=== PATIENT | male | born 1950 | race Caucasian/White ===

== ENCOUNTER 2019-04-06 13:11 | Inpatient (IN) | payer MEDICARE ==
--- OUTSIDE RECORDS SUMMARY | 2019-04-06 13:20 | XMS REPORT | Continuity of Care Document ---
:1950 External Reference #:[id number] Author Name Murray Clemente M.D. 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 Onset: 12/21/2016 outflow obstruction Imaging of abdomen abnormal Murray Clemente M.D. Onset: 01/16/2018 Diverticular disease of colon Murray Cleemnte M.D. Onset: 2017 Benign neoplasm of colon Murray Clemente M.D. Onset: 01/16/2018 Psychogenic impotence Bradly Scales M.D. Onset: 11/09/2017 Benign prostatic hypertrophy Bradly Scales M.D. Onset: 08/03/2017 without outflow obstruction Retention of urine Bradly Scales M.D. Onset: 08/03/2017 Tear film insufficiency Adam Velasco MD Onset: 05/25/2017 Combined form of senile cataract Adam Velasco MD Onset: 05/25/2017 Epiretinal membrane Adam Velasco MD Onset: 05/25/2017 Raised prostate specific antigen Bradly Scales M.D. Onset: 03/13/2017 Social History Type Date Description Comments Sex Unknown Tobacco Use Start: Unknown End: Quit 15 years ago Unknown Smokeless Tobacco Current Smokeless Tobacco User, Uses Once Daily ETOH Use Consumes 1 beer per day Tobacco Use Start: Unknown End: Patient is a former smoker Recreational Drug Use Denies Drug Use Smoking Status Reviewed: 06/04/18 Patient is a former smoker Allergies, Adverse Reactions, Alerts Description No Known Drug Allergies Medications Active Medications SIG Qnty Indications Ordering Provider Date Miralax 1 to 2 packets by 24units K59.00 Bryn, 03/27/2019 3350NF mouth as needed Karuna Alex constipation Ivone Aspirin 1 po qd Unknown 81mg Chewtabs Trazodone HCL 2 po qd prn Unknown 50mg Tablets Lisinopril 1 by mouth every Unknown 5mg day Tablets Stool Softner 5 mg 1 tab every 2 Unknown days Immunizations Description No Information Available Vital Signs Date Vital Result Comment 03/27/2019 2:42pm BP Systolic 153 mmHg BP Diastolic 96 mmHg Heart Rate 76 /min Respiratory Rate 20 /min Height 67 inches 5'7" Weight 185.00 lb BMI (Body Mass Index) 29.0 kg/m2 BSA (Body Surface Area) 1.96 m2 Bandon body weight in kilograms 67 kg O2 % BldC Oximetry 99 % 05/17/2018 8:19am BP Systolic 158 mmHg BP Diastolic 90 mmHg Body Temperature 97.4 F Heart Rate 71 /min Respiratory Rate 16 /min Height 67 inches 5'7" Pain Level 0 Bandon body weight in kilograms 67 kg O2 % BldC Oximetry 99 % Results Description No Information Available Procedures Date Code Description Status 04/09/2001 96769088 Colonoscopy Completed Medical Devices Description No Information Available Encounters Description No Information Available Assessments Date Code Description Provider 03/27/2019 K59.00 Constipation, unspecified Murray Clemente M.D. Plan of Treatment Future Appointment(s):06/09/2019 8:30 am - Adam Velasco MD at [id number]/ 06/2020 8:30 am - Bradly Scales M.D. at [facility] Functional Status Functional Condition Comment Date Status Active Independent with all ADL's Active Independent with all IADL's Active Mental Status Description No Information Available Referrals Description No Information Available
--- NOTE | 2019-04-06 13:21 | ED ---
HPI Chest Pain - HPI Summary HPI Summary: 69-year-old male with a significant past medical history of HTN presents to the emergency department today complaining of chest pain. he states he has had intermittent chest pain for the last 3 days which he describes as 3 out of 10 pressure was left anterior chest. Pain lasts approx 10 minutes. Patient states this pain comes on "randomly and "it is not associated with exertion. he reports associated lightheadedness, shortness of breath, arm/ leg numbness and tingling with chest pain. Patient took 81 mg of aspirin this morning and received another 324 mg of aspirin in route to the hospital via EMS. Patient denies fever, abdominal pain, shortness of breath, rash. Upon presentation to the emergency department patient is asymptomatic and has no pain. Family and social history are noncontributory. Patient's c d area supervisor is Dr. Gottlieb. Patient states his last stress test was January 2018 and his most recent echocardiography was done February 2019. - History of Current Complaint Time Seen by Provider: 04/06/19 13:13 Hx Obtained From: Patient Onset/Duration: Started Hours Ago, Started Days Ago, Atraumatic Timing: Intermittent, Lasting Minutes Initial Severity: Mild Current Severity: Mild Pain Scale Used: 0-10 Numeric Chest Pain Location: Left Anterior Chest Pain Radiates: Yes Chest Pain Radiates To:: Arm Character: Pressure/Squeezing Aggravating Factor(s): Nothing Alleviating Factor(s): Nothing, Rest Associated Signs and Symptoms: Positive: Chest Pain, Vision Changes, Recent Stress, Tingling, Shortness of Breath, Lightheadedness - Allergy/Home Medications Allergies/Adverse Reactions: Allergies Allergy/AdvReac Type Severity Reaction Status Date / Time MS Atorvastatin Allergy Unknown Unknown Verified 12/22/16 15:46 [From Lipitor] Reaction Details MS Rosuvastatin Allergy Unknown Unknown Verified 12/22/16 15:46 [From Crestor] Reaction Details Home Medications: Home Medications Aspirin Childrens 81 MG 81 mg PO DAILY 04/06/19 [History Confirmed 04/06/19] Lisinopril 2.5 MG- 5 mg PO DAILY 04/06/19 [History Confirmed 04/06/19] PMH/Surg Hx/FS Hx/Imm Hx Endocrine/Hematology History: Denies: Hx Diabetes, Hx Systemic Lupus Erythematosus Cardiovascular History: Reports: Hx Aneurysm, Hx Hypertension Denies: Hx Congestive Heart Failure, Hx Pacemaker/ICD Respiratory History: Reports: Other Respiratory Problems/Disorders - CHRONIC BRONCHITIS GI History: Reports: Other GI Disorders - GERD History: Denies: Hx Dialysis, Hx Renal Disease Musculoskeletal History: Denies: Hx Rheumatoid Arthritis Sensory History: Denies: Hx Hearing Aid Psychiatric History: Denies: Hx Panic Disorder - Cancer History Hx Chemotherapy: No - Surgical History Surgery Procedure, Year, and Place: 1969 HERNIA REPAIR, AORTA FEMORAL BYPASS AND AAA REPAIR 2001, THORACIC TUMOR REMOVED, LUMBAR LAMINECTOMY 2009, LEFT CAROTID ENDARTECTOMY 04/2011 Infectious Disease History: Denies: Traveled Outside the [place] in Last 30 Days Review of Systems Constitutional: Negative Eyes: Negative ENT: Negative Positive: Chest Pain Positive: Shortness Of Breath Gastrointestinal: Negative Genitourinary: Negative Musculoskeletal: Negative Skin: Negative Neurological: Negative Psychological: Normal All Other Systems Reviewed And Are Negative: Yes Physical Exam Triage Information Reviewed: Yes Vital Signs Reviewed: Yes Appearance: Positive: Well-Appearing, No Pain Distress, Well-Nourished Skin: Positive: Warm, Skin Color Reflects Adequate Perfusion Eyes: Positive: EOMI, [place] ENT: Positive: Hearing grossly normal Respiratory/Lung Sounds: Positive: Clear to Auscultation, Breath Sounds Present Cardiovascular: Positive: RRR, S1, S2 Abdomen Description: Positive: Nontender, Soft. Negative: Distended, Guarding Bowel Sounds: Positive: Present Musculoskeletal: Positive: Strength/ROM Intact Neurological: Positive: Sensory/Motor Intact, Alert, Oriented to Person Place, Time, Normal Gait, Speech Normal Psychiatric: Positive: Normal AVPU Assessment: Alert Procedures - Sedation Patient Received Moderate/Deep Sedation with Procedure: No Diagnostics - Laboratory Result Diagrams: 04/06/19 13:29 04/06/19 13:24 Lab Statement: Any lab studies that have been ordered have been reviewed, and results considered in the medical decision making process. Chest Pain Course/Dx - Course Course Of Treatment: The patient was evaluated for chest pain in the emergency department. They were promptly seen and examined. Laboratory studies, diagnostic films and an EKG were performed to investigate the patients risk for acute cardiopulmonary pathology. Pericarditis, ACS, pneumothorax, pulmonary embolism and aortic dissection were all considered in the workup of this patient. EKG was done which showed no evidence of myocardial infarction. Normal sinus rhythm at a rate of 66 bpm with normal intervals. Right bundle branch block is noted. Labs returned with no significant abnormalities. Initial troponin was 0.01. serial troponins ordered for watching delta troponin. HEART Score 5. Hospitalist Dr. Malik was consulted at 1502 for admission of the patient for further evaluation and management for his chest pain due to his high heart score. - Chest Pain Differential Diagnosis/HQI/PQRI: Acute IA, ACS, Angina - Diagnoses Provider Diagnoses: Chest pain - Provider Notifications Discussed Care Of Patient With: Jyoti Malik - agreed to admit the patient to [facility] for further evaluation and management Time Discussed With Above Provider: 15:02 Instructed by Provider To: Admit As Inpatient Discharge ED - Sign-Out/Discharge Documenting (check all that apply): Patient Departure - Discharge Plan Condition: Stable Disposition: ADMITTED TO [facility] Patient Education Materials: Chest Pain (ED) Referrals: Wiliam Russ MD [Primary Care Provider] - 5 Days - Billing Disposition and Condition Condition: STABLE Disposition: Admitted to [facility] - Attestation Statements Provider Attestation: I was available for consultation for this patient. I did not evaluate the patient or participate in any medical decision making or disposition decisions unless I am specifically named in the chart as having consulted on the patient. If I have consulted on the patient, please see my own ED note on the patient encounter. Manan Ma MD
[2019-04-06 13:39] LABS: ABS Basophils 0.1 10^3/ul (0-0.2); ABS Lymphocytes 1.2 10^3/ul (1.0-4.8); ABS Monocytes 0.3 10^3/ul (0-0.8); ABS Neutrophils 5.8 10^3/ul (1.5-7.7); Eosinophil % 0.5 %; Hematocrit 43 % (42-52); Hemoglobin 14.8 g/dL (14.0-18.0); Lymphocyte % 16.4 %; Mean Corpuscular HGB Conc 34 g/dL (31-36); Mean Corpuscular Hemoglobin 31 pg (27-31); Mean Corpuscular Volume 91 fL (80-94); Mean Platelet Volume 6.8 fL (7.4-10.4); Nucleated Red Blood Cells % 0.1; Platelet Count 208 10^3/uL (150-450); Red Blood Count 4.77 10^6 /uL (4.18-5.48); Red Cell Distribution Width 13 % (10-15); White Blood Count 7.5 10^3/uL (3.5-10.8)
[2019-04-06 13:56] LABS: Albumin 3.8 g/dL (3.2-5.2); Albumin/Globulin Ratio 1.6 (1-3); BUN/Creatinine Ratio 14.5 (8-20); EGFR African American 80.1 (>60); EGFR Non-African American 66.2 (>60); Globulin 2.4 g/dL (2-4); Total Bilirubin 0.3 mg/dL (0.2-1.0); Total Protein 6.2 g/dL (6.4-8.9)
[2019-04-06 13:57] LABS: Troponin I 0.01 ng/mL (<0.03)
[2019-04-06 14:02] LABS: Urine Appearance Clear; Urine Bilirubin Negative (Negative); Urine Blood Negative (Negative); Urine Color Yellow; Urine Glucose Negative (Negative); Urine Ketones Negative (Negative); Urine Nitrite Negative (Negative); Urine Protein Negative (Negative); Urine Urobilinogen Negative (Negative)
[2019-04-06 14:19] LABS: TSH (Thyroid Stimulating Horm) 1.99 mcIU/mL (0.34-5.60)
[2019-04-06] MEDS ORDERED: Ondansetron INJ* 2 MG/ML VIAL IV PRN (16:17)
[2019-04-06] MEDS ORDERED: Morphine INJ* 2 MG/ML 1 ML SYRINGE (TWO MG - NEW SYRINGE VERSION) IV PRN (16:17)
[2019-04-06] MEDS ORDERED: Al Hydrox/Mg Hydrox/Simet LIQ* 30 ML UDC PO PRN (16:17)
[2019-04-06 17:00] LABS: Troponin I 0.05 ng/mL (<0.03)
[2019-04-06] MEDS ORDERED: Iohexol 350* (CONTRAST) 500 ML MDV IV ONE (17:21)
[2019-04-06] MEDS ORDERED: NS 0.9% 1000 ML** 1,000 ML IV SCH (17:30)
[2019-04-06] MEDS ORDERED: Metoclopramide IV* 5 MG/ML 2 ML VIAL IV ONE (18:24)
--- NOTE | 2019-04-06 18:33 | PN ---
Hospitalist Progress Note Date of Service: 04/06/19 Received a call from the ED nurse as I am siphoner- regarding chest pain. 69M hx of CAD presented with chest pain, was admitted for chest pain rule out. By the time I evaluated the patient, he was chest pain free. EKG was done, no major ST-T changes compared to the prior EKG done few hours ago. BP is elevated, and troponin now is 0.05. Probable NSTEMI: - add beta anitha - add nitro paste - IV metoprolol X one dose - start heparin drip - check lipids, at this point allergic to statin- so will not start - check A1c. - case d/w Dr. Cortes for consult, should there be any changes in his status- need to notify cardiology
[2019-04-06] MEDS: Nitroglycerin 0.4 MG/HR PATCH* (10 MG) TRANSDERM SCH (18:37)
[2019-04-06] MEDS ORDERED: Metoprolol Tartrate IV* 1 MG/ML 5 ML VIAL IV ONE (18:54)
[2019-04-06 19:15] LABS: ABS Basophils 0.1 10^3/ul (0-0.2); ABS Eosinophils 0.1 10^3/ul (0-0.6); ABS Lymphocytes 1.3 10^3/ul (1.0-4.8); ABS Monocytes 0.3 10^3/ul (0-0.8); ABS Neutrophils 6.6 10^3/ul (1.5-7.7); Eosinophil % 0.9 %; Hematocrit 42 % (42-52); Hemoglobin 14.3 g/dL (14.0-18.0); Lymphocyte % 15.4 %; Mean Corpuscular HGB Conc 34 g/dL (31-36); Mean Corpuscular Hemoglobin 31 pg (27-31); Mean Corpuscular Volume 90 fL (80-94); Mean Platelet Volume 6.7 fL (7.4-10.4); Platelet Count 199 10^3/uL (150-450); Red Blood Count 4.68 10^6 /uL (4.18-5.48); Red Cell Distribution Width 14 % (10-15); White Blood Count 8.3 10^3/uL (3.5-10.8)
[2019-04-06 19:34] LABS: EGFR Non-African American 54.6 (>60)
--- NOTE | 2019-04-06 19:44 | HP ---
CC: Dr. Russ; Dr. Gottlieb* HISTORY AND PHYSICAL: DATE OF ADMISSION: 04/06/19 PRIMARY CARE PROVIDER: Dr. Russ. STUDENT SUPPORT COUNSELOR: Dr. Gottlieb. CHIEF COMPLAINT: Chest pain. HISTORY OF PRESENT ILLNESS: Angel Caruso is a 69-year-old male with a history of peripheral vascular disease, carotid endarterectomy, abdominal aortic aneurysm repair, who presented to the hospital complaining of left-sided chest discomfort. Apparently, the patient stated that he has had chest discomfort like that, but not that severe. Further on, he goes on to explain that it is not only pain, but is discomfort and pressure localized in his left breast area radiating to his left arm and left neck. Today in the morning, it was associated with nausea that is currently resolved. The patient stated that it was not pleuritic, but when he started taking a deep breath, he stated that the pain was "coming on again." Then, it resolved again. The pressure also was present yesterday. He stated that he basically felt poorly for the past couple of days and he is not sure why. He denies any shortness of breath, although when the discomfort occurred, it "knocked the breath out of him." Currently, he is chest pain-free. He had a similar discomfort that he remembers several years ago around 2012 when he was noted to have left carotid artery disease and had to have left carotid endarterectomy. The patient stated that his material manager told him that some person in medical records had said that he had a heart attack, although the patient himself stated that he never had cardiac catheterization, never had a positive stress test, and never had coronary artery bypass grafting. He stated that Dr. 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 The patient is going to be placed on overnight observation with a diagnosis of chest pain. PAST MEDICAL HISTORY: 1. History of peripheral arterial disease, status post left carotid endarterectomy in the year of approximately 2012. 2. History of abdominal aortic aneurysm repair and aortic femoral bypass in 2001. 3. Thoracic aortic ectasia. 4. History of chest pain. 5. Hypertension. 6. Hypercholesterolemia. 7. BPH. 8. Gastroesophageal reflux disease. 9. CVA in 1979. 10. TIA in 1993. The patient denies any problems with lungs, although he has bronchitis twice a year and he uses an inhaler on as needed basis. He denies any emphysema or COPD or asthma history. PAST SURGICAL HISTORY: 1. Hernia repair on the right side in 1968. 2. Aortic femoral bypass and abdominal aortic aneurysm repair in 2001. 3. Thoracic spine tumor removal. 4. Lumbar laminectomy in 2009. 5. Left carotid endarterectomy around 2012. MEDICATIONS: The patient's medications at home, which include: 1. Lisinopril 5 mg daily. 2. Aspirin 81 mg daily. 3. Trazodone 100 mg at bedtime. ALLERGIES: ATORVASTATIN and ROSUVASTATIN. FAMILY HISTORY: Father who of heart disease at the age of 64, mother who at the age of 82 secondary to dementia, brother with history of having heart attack at the age of 59. The patient's recent echocardiogram obtained within the past month showed mild LVH with EF of 50% to 60%, mild mitral regurgitation, and no evidence of wall motion abnormality. SOCIAL HISTORY: The patient chews tobacco and drinks 2 to 6 beers a day. Denies any drug use. His is his surrogate. Her name is Richelle Caruso, phone number is [phone]. REVIEW OF SYSTEMS: Please see history of present illness. In addition to the above mentioned, the patient stated that for the past several months he has been having problems with predominant constipation, but also intermittent diarrhea. He had seen a extension agent for that and his colonoscopy within the past couple of months was unremarkable. He stated that he had been constipated, but he just had a bowel movement yesterday. Currently, he denies any nausea, but he had an onset of nausea with the discomfort today in the morning. He denies any shortness of breath. In regards of his chest pain, please see history of present illness. All the remaining 12 systems were reviewed with the patient and were otherwise negative. PHYSICAL EXAMINATION GENERAL: The patient is a very pleasant 69-year-old male, who is in no acute distress. The patient is alert and oriented x3. VITAL SIGNS: Blood pressure of 158/99, heart rate of 67 and regular, respiratory rate 18, oxygen saturation 97% on room air, temperature of 97.9. HEENT: Head: Atraumatic, normocephalic. Eyes: Pupils are equal and reactive to light and accommodation. Oropharynx is clear. Mucosa moist. NECK: Supple. No JVD. No bruits bilaterally. RESPIRATORY: Clear to auscultation bilaterally. CARDIOVASCULAR: Regular rate and rhythm. No murmur. ABDOMEN: Soft, nontender. Bowel sounds are present in all 4 quadrants. EXTREMITIES: There is no edema. Pulses are +2 bilaterally. No clubbing or cyanosis. NEURO EVALUATION: Speech clear. Cranial nerves II through XII grossly intact. Motor strength is 5/5 bilaterally. DIAGNOSTIC STUDIES/LAB DATA: White blood cell count of 7.5, hemoglobin of 14.8 , hematocrit of 43, and platelets of 208. D-dimer was 303. Sodium was 139, potassium 4.0, chloride 109, carbon dioxide 24, BUN 16, creatinine 1.1. Liver function tests were unremarkable. Troponin of 0.01. Urinalysis is unremarkable. Portable chest x-ray is pending at the time of dictation. The patient's EKG showed right bundle-branch block with a heart rate of 66 beats per minute with no ST changes. There was no EKG available for comparison. ASSESSMENT AND PLAN: 1. The patient has intermittent chest pain localized in the left breast radiating to the neck and arm. At this point, his D-dimer is mildly elevated. The patient stated that he feels that his symptoms were similar to symptoms when he was diagnosed with carotid artery disease. At this point, the patient is going to have a CT angiogram of the head and chest to evaluate for both carotid disease as well as to rule out pulmonary embolism. If those are negative, we will follow up with a cardiac stress test in the morning and that is going to be exercise. 3. For hypertension, the patient is going to be continued on his lisinopril at home dose of 5 mg daily. 4. For DVT prophylaxis, the patient is going to be placed on heparin subcutaneously. 5. The patient's code status is full. His surrogate is his . TIME SPENT: Approximately, 65 minutes was spent on admission of this patient, more than half of that time was spent [id number] with the patient during the interview and physical exam. [id number] #: [id number] MTDD
[2019-04-06] MEDS ORDERED: Heparin VIAL(*) 5000 UNITS/ML VIAL (FIVE THOUSAND) IV PRN (20:26)
[2019-04-06] MEDS: Metoprolol Tartrate TAB* 25 MG PO SCH (20:34)
[2019-04-06] MEDS: Docusate CAP* 100 MG PO SCH (20:34)
[2019-04-06] MEDS: traZODone TAB* 100 MG PO SCH (20:34)
[2019-04-06] MEDS: Acetaminophen TAB* 325 MG PO PRN (20:34)
[2019-04-06] MEDS: Heparin DRIP 25,000 UNITS(*) 25,000 UNITS/500 ML BAG IV SCH (20:35)
[2019-04-06] MEDS ORDERED: Heparin VIAL(*) 5000 UNITS/ML VIAL (FIVE THOUSAND) SUBCUT SCH (22:00)
[2019-04-06 22:21] LABS: Troponin I 0.04 ng/mL (<0.03)
[2019-04-07 03:22] LABS: Troponin I 0.03 ng/mL (<0.03)
[2019-04-07] MEDS: Nitro Patch/OINT Remove PATCH OFF SCH (05:49)
[2019-04-07 06:28] LABS: ABS Basophils 0.1 10^3/ul (0-0.2); ABS Eosinophils 0.1 10^3/ul (0-0.6); ABS Monocytes 0.3 10^3/ul (0-0.8); Hematocrit 40 % (42-52); Hemoglobin 13.6 g/dL (14.0-18.0); Lymphocyte % 23.4 %; Mean Corpuscular HGB Conc 34 g/dL (31-36); Mean Corpuscular Hemoglobin 31 pg (27-31); Mean Corpuscular Volume 91 fL (80-94); Mean Platelet Volume 6.8 fL (7.4-10.4); Platelet Count 200 10^3/uL (150-450); Red Cell Distribution Width 14 % (10-15); White Blood Count 8.5 10^3/uL (3.5-10.8)
[2019-04-07 06:43] LABS: HDL Cholesterol 42.7 mg/dL
[2019-04-07] MEDS ORDERED: Aminophylline IV* 25 MG/ML 10 ML VIAL ONE (08:25)
[2019-04-07] MEDS ORDERED: Regadenoson* 0.4 MG/5 ML SYRINGE ONE (08:25)
[2019-04-07] MEDS ORDERED: Lisinopril TAB* 5 MG PO SCH (09:00)
[2019-04-07] MEDS ORDERED: LISINOPRIL PO SCH (09:00)
[2019-04-07] MEDS: Docusate CAP* 100 MG PO SCH ×2 (09:34→21:44)
[2019-04-07] MEDS: Metoprolol Tartrate TAB* 25 MG PO SCH ×2 (09:40→21:44)
[2019-04-07] MEDS: Aspirin 81 mg CHEW TAB* 81 MG TAB.CHEW PO SCH (09:40)
[2019-04-07] MEDS ORDERED: Ticagrelor* 90 MG TAB PO ONE (12:18)
--- NOTE | 2019-04-07 12:42 | CONSULT ---
Subjective Date of Service: 04/07/19 Interval History: Admission Date: 04/06/19 Consult date 04/07/2019 Service: Hospitalist PCP: Dr. Russ [employer] Mixer: Dr. Gottlieb CHIEF COMPLAINT: Chest pain Reason for consult: Chest pain HISTORY OF PRESENT ILLNESS: Angel Caruso is a 69-year-old man with a history as below. Patient states Sunday after walking dog he felt like someone was sitting on his chest associated with left arm and bilateral shoulder discomfort along with dyspnea, nausea and lightheadedness. This lasted less than 1 hour. This discomfort had come and went. He said it came back severe last evening when walking to the bathroom inpatient. He is now pain free with his . He ruled in for ACS with rise and fall of troponin. He had a stress test this AM ( unfortunately not exercise so we cannot use alvarado score to further risk stratify. ). Patient tells me he had throat discomfort with lexiscan. No ischemic ekg changes were noted. PAST MEDICAL HISTORY: 1. History of peripheral arterial disease, status post left carotid endarterectomy in the year of approximately 2012. 2. History of abdominal aortic aneurysm repair and aortic femoral bypass in 2001 bilaterally per patients account (operative report not available 3. History of chest pain. 4. Hypertension. 5. Hypercholesterolemia. 6. BPH. 7. Gastroesophageal reflux disease. 8 CVA in 1979, TIA in 1993. 9. Reactive airway disease 10. Renal artery stenosis PAST SURGICAL HISTORY: 1. Hernia repair on the right side in 1968. 2. Aortic femoral bypass and abdominal aortic aneurysm repair in 2001. 3. Thoracic spine tumor removal. 4. Lumbar laminectomy in 2009. 5. Left carotid endarterectomy around 2012. ALLERGIES: ATORVASTATIN and ROSUVASTATIN. FAMILY HISTORY: Father who of heart disease at the age of 64, mother who at the age of 82 secondary to dementia, brother with history of having heart attack at the age of 59. SOCIAL HISTORY: The patient chews tobacco and drinks 2 to 3 coors light beers a day. Denies any drug use. His is his surrogate. Her name is Richelle Caruso, phone number is [phone] and she is at bedside. Medications Active Medications: Acetaminophen (Tylenol Tab*) 650 mg PO Q4H PRN PRN Reason: PAIN-MILD/TEMP >/= 100.4 Last Admin: 04/06/19 20:34 Dose: 650 mg Al Hydrox/Mg Hydrox/Simethicone (Maalox Plus*) 30 ml PO Q6H PRN PRN Reason: INDIGESTION Aspirin (Aspirin 81 Mg Chew Tab*) 81 mg PO DAILY [facility] Last Admin: 04/07/19 09:40 Dose: 81 mg Docusate Sodium (Colace Cap*) 100 mg PO BID [facility] Last Admin: 04/07/19 09:34 Dose: Not Given Ezetimibe (Zetia Tab*) 10 mg PO 1700 [facility] Heparin Sodium (Porcine) (Heparin Vial(*)) 0 units IV .FOR BOLUSES PRN PRN Reason: HEPARIN DRIP BOLUSES Last Admin: 04/06/19 20:36 Dose: 4,000 units Heparin Sodium/Dextrose (Heparin Drip 25,000 Units(*)) 25,000 units in 500 mls @ 0 mls/hr IV PER RATE [facility]; Protocol Last Admin: 04/06/19 20:35 Dose: 20 mls/hr Sodium Chloride (Ns 0.9% 1000 Ml) 1,000 mls @ 75 mls/hr IV PER RATE [facility] Metoprolol Tartrate (Lopressor Tab*) 25 mg PO BID [facility] Last Admin: 04/07/19 09:40 Dose: 25 mg Nitroglycerin (Nitroglycerin 10 Mg Patch*) 1 patch TRANSDERM BEDTIME@2000 [facility] Last Admin: 04/06/19 18:37 Dose: 1 patch Ondansetron HCl (Zofran Inj*) 4 mg IV Q4H PRN PRN Reason: NAUSEA/VOMITING Pharmacy Profile Note (Nitro Patch/Oint Remove*) 1 note PATCH OFF 0600 [facility] Last Admin: 04/07/19 05:49 Dose: 1 patch Ticagrelor (Brilinta*) 180 mg PO ONCE ONE Stop: 04/07/19 12:19 Ticagrelor (Brilinta*) 90 mg PO BID [facility] Trazodone HCl (Desyrel Tab*) 100 mg PO BEDTIME [facility] Last Admin: 04/06/19 20:34 Dose: 100 mg Home Medications: traZODone TAB* 100 mg PO BEDTIME 03/13/12 [History Confirmed 04/06/19] Aspirin Childrens 81 MG 81 mg PO DAILY 04/06/19 [History Confirmed 04/06/19] Docusate Sodium [Colace] 100 mg PO DAILY PRN 04/06/19 [History Confirmed ] Lisinopril 2.5 MG- 5 mg PO DAILY 04/06/19 [History Confirmed 04/06/19] Review of Systems - Measurements Intake and Output: Intake and Output Last 24 Hours 04/05/19 04/06/19 04/07/19 04/08/19 06:59 06:59 06:59 06:59 Intake Total 821 1000 Balance 821 1000 Weight 184 lb 3.2 oz Intake: IV Fluids 632 1000 NS (0.9%) 632 Heparin 189 Oral 0 - Review of Systems Constitutional Symptoms: Negative: Weight Gain, Weight Loss, Fatigue Dermatology: Negative: Rash, Skin Lesions HEENT: Negative: Change in Hearing, Vertigo Eyes: Negative: Change in Vision, Double Vision Thyroid: Negative: Weight Loss, Weight Gain Pulmonary: Positive: Shortness of Breath Negative: Wheezing, Respiratory Distress, COPD, Exercise Intolerance, Home Oxygen Cardiology: Positive: Chest Pain, Shortness of Breath, Faintness Negative: Palpitations, Swelling of Ankles, Peripheral Vascular Dis, Edema, Syncope, Claudication, Paroxysmal Nocturnal Dyspnea, Orthopnea Gastroenterology: Negative: Abdominal Pain, Nausea, Vomiting, Anorexia, Indigestion, Difficulty Swallowing, Heartburn, Constipation, Diarrhea, Blood in Stools, Change in Bowel Habits, Haematemesis, Melena, Other Genital - Urinary: Negative: Dysuria, Hematuria Musculoskeletal: Negative: Joint Pain, Joint Stiffness Endocrinology: Negative: Polydipsia, Polyuria Hematologic/Lymphatic: Positive: Use of Antiplatelet Drugs Negative: Use of Anticoagulant Neurology: Positive: Hx of Stroke\TIA Negative: Numbness\Paresthesiae Psychiatry: Negative: Unusual Anxiety, Suicidal Ideation Allergic/Immunologic: Negative: Hx HIV, Immunocompromise Review of Systems Statement: All other review of systems negative, unless stated above. Objective Vital Signs: Temp Pulse Resp BP Pulse Ox 97.5 F 63 18 157/76 100 04/07/19 11:15 04/07/19 11:15 04/07/19 11:15 04/07/19 11:15 04/07/19 11:15 Oxygen Devices in Use Now: None Appearance: nad, pleasant Ears/Nose/Mouth/Throat: Clear Oropharnyx, Mucous Membranes Moist Neck: NL Appearance and Movements; NL JVP, Trachea Midline Respiratory: Symmetrical Chest Expansion and Respiratory Effort, Clear to Auscultation Cardiovascular: NL Sounds; No Murmurs; No JVD, RRR, No Edema Abdominal: NL Sounds; No Tenderness; No Distention, - - abdomen scar. right femoral pulse felt well, left felt medial Extremities: No Edema Skin: No Rash or Ulcers Neurological: Alert and Oriented x 3 Laboratory Results: 04/07/19 06:18 04/06/19 19:09 APTT 66.5 seconds (26.0-38.0) H 04/07/19 09:45 Total Bilirubin 0.30 mg/dL (0.2-1.0) 04/06/19 13:24 AST 13 U/L (13-39) 04/06/19 13:24 ALT 17 U/L (7-52) 04/06/19 13:24 Alkaline Phosphatase 37 U/L (34-104) 04/06/19 13:24 Total Protein 6.2 g/dL (6.4-8.9) L 04/06/19 13:24 Albumin 3.8 g/dL (3.2-5.2) 04/06/19 13:24 Globulin 2.4 g/dL (2-4) 04/06/19 13:24 Albumin/Globulin Ratio 1.6 (1-3) 04/06/19 13:24 Triglycerides 97 mg/dL 04/07/19 06:18 Cholesterol 208 mg/dL 04/07/19 06:18 LDL Cholesterol 146 mg/dL 04/07/19 06:18 HDL Cholesterol 42.7 mg/dL 04/07/19 06:18 TSH 1.99 mcIU/mL (0.34-5.60) 04/06/19 13:24 04/06/19 04/06/19 04/06/19 13:24 16:29 21:39 Troponin I 0.01 0.05 H* 0.04 H* 04/07/19 04/07/19 02:32 09:45 Troponin I 0.03 H* 0.01 Diagnostic Imaging: Exam Date: 04/06/191658 ADM Status: ADM Ron COMPARISON: Chest CT October 24, 2011 IMPRESSION: 1. No CT of evidence of pulmonary embolism. 2. At the dependent-most portion of the left lower lobe there is a 5 mm subpleural nodule that can be followed according to Fleischner Society criteria. 3. Chronic and degenerative changes described in the body the report. Exam Date: 04/06/19 CTA NECK CTA NECK: The common and internal carotid arteries are patent without hemodynamically significant stenosis. Right: Below the carotid bulb the common carotid artery measures 7 mm in diameter. There is coarse atherosclerotic calcification at the carotid bulb but the bulb measures 7 mm in short axis diameter. This yields 0% degree stenosis. Left: Below the carotid bifurcation the common carotid artery measures 5 mm in diameter. There is a small focus of hyperattenuating material at the carotid bulb which may be calcification or surgical material. The inferior most internal carotid artery measures 5 mm in short axis diameter. This yields 0% degree stenosis. The vertebral arteries are patent without gross abnormality. CTA of the brain (visualized portions): The internal carotid, visualized portions of the anterior and visualized portions of the middle cerebral arteries appear are patent without high grade stenosis or occlusion. The vertebral, basilar and visualized portions of the posterior cerebral arteries appear patent without high grade stenosis or occlusion. No focal luminal filling defect, aneurysm or vascular malformation is seen. NON-ARTERIAL FINDINGS: Degenerative changes of the cervical spine includes loss of intervertebral disc height and marginal osteophyte formation at the mid and lower portions of the cervical spine. IMPRESSION: 1. According to NASCET criteria, the right worse in left carotid atherosclerosis , does not cause any significant flow limitation. 2. There is no CT evidence of acute cervical abnormality including acute abnormality of either carotid artery. echo 03/05/2019 LVEF 55-60% no WMA No significant valvular abnormalities noted 3.8 cm ascending aorta Stress MPI today reviewed showed small diagonal branch ischemia. inferior wall ischemia cannot be excluded unfortunately prone imaging not utilized. EKG Data: ekg on admission shows NSR, RBBB, grossly unchanged on repeat Assessment/Plan Working diagnosis at this point given pretest probability of establish PAD is a type 1 DE although his symptoms are out of proportion to mild troponin elevation. Fidelia score is 126 high risk for 6 month events and I do not think the non-high risk vasodilator stress MPI appropriately risk stratifies him. Will add brilinta 180 mg po x 1 now then 90 mg bid and start 10 mg of zetia ( ordered and may be a candidate for pcsk9 inhibitor as an outpatient). continue heparin gtt, BB and nitrates. Home AceI held with recent contrast and will start IVF and check BMP tomorrow. Cardiac catheterization with intent for revascularization indicated. Risks, benefits alternatives discussed and patient wishes to proceed. Discussed with Dr. Davidson will also request vascular surgery record.
--- NOTE | 2019-04-07 13:52 | PN ---
Subjective Date of Service: 04/07/19 Interval History: Pt feels well, denies current CP Objective Active Medications: Acetaminophen (Tylenol Tab*) 650 mg PO Q4H PRN PRN Reason: PAIN-MILD/TEMP >/= 100.4 Last Admin: 04/06/19 20:34 Dose: 650 mg Al Hydrox/Mg Hydrox/Simethicone (Maalox Plus*) 30 ml PO Q6H PRN PRN Reason: INDIGESTION Aspirin (Aspirin 81 Mg Chew Tab*) 81 mg PO DAILY [facility] Last Admin: 04/07/19 09:40 Dose: 81 mg Docusate Sodium (Colace Cap*) 100 mg PO BID [facility] Last Admin: 04/07/19 09:34 Dose: Not Given Ezetimibe (Zetia Tab*) 10 mg PO 1700 [facility] Heparin Sodium (Porcine) (Heparin Vial(*)) 0 units IV .FOR BOLUSES PRN PRN Reason: HEPARIN DRIP BOLUSES Last Admin: 04/06/19 20:36 Dose: 4,000 units Heparin Sodium/Dextrose (Heparin Drip 25,000 Units(*)) 25,000 units in 500 mls @ 0 mls/hr IV PER RATE [facility]; Protocol Last Admin: 04/06/19 20:35 Dose: 20 mls/hr Sodium Chloride (Ns 0.9% 1000 Ml) 1,000 mls @ 75 mls/hr IV PER RATE [facility] Metoprolol Tartrate (Lopressor Tab*) 25 mg PO BID [facility] Last Admin: 04/07/19 09:40 Dose: 25 mg Nitroglycerin (Nitroglycerin 10 Mg Patch*) 1 patch TRANSDERM BEDTIME@2000 [facility] Last Admin: 04/06/19 18:37 Dose: 1 patch Ondansetron HCl (Zofran Inj*) 4 mg IV Q4H PRN PRN Reason: NAUSEA/VOMITING Pharmacy Profile Note (Nitro Patch/Oint Remove*) 1 note PATCH OFF 0600 [facility] Last Admin: 04/07/19 05:49 Dose: 1 patch Ticagrelor (Brilinta*) 90 mg PO BID [facility] Trazodone HCl (Desyrel Tab*) 100 mg PO BEDTIME [facility] Last Admin: 04/06/19 20:34 Dose: 100 mg Vital Signs - 8 hr 04/07/19 04/07/19 09:41 11:15 Temperature 98.0 F 97.5 F Pulse Rate 66 63 Respiratory 18 18 Rate Blood Pressure 142/76 157/76 (mmHg) O2 Sat by Pulse 100 100 Oximetry Oxygen Devices in Use Now: None Appearance: 69 yo m in nAD, aAOx3 Eyes: No Scleral Icterus, PERRLA Ears/Nose/Mouth/Throat: NL Teeth, Lips, Gums, Mucous Membranes Moist Neck: NL Appearance and Movements; NL JVP, Trachea Midline Respiratory: Symmetrical Chest Expansion and Respiratory Effort, Clear to Auscultation Cardiovascular: NL Sounds; No Murmurs; No JVD Abdominal: NL Sounds; No Tenderness; No Distention Lymphatic: No Cervical Adenopathy Extremities: No Edema, No Clubbing, Cyanosis Skin: No Rash or Ulcers, No Nodules or Sclerosis Neurological: Alert and Oriented x 3, NL Muscle Strength and Tone Result Diagrams: 04/07/19 06:18 04/06/19 19:09 Assess/Plan/Problems-Billing Assessment: 69 yo M with h/o left carotid enderterectomy, AAA repair, aorto- femoral bypass who presents with CP - Patient Problems (1) Unstable angina Comment: had another CP last night, now CP free Stress test shows mod area of reversible ishemia cont ASA/heparin gtt, BB, Brilinta Allergy to statins noted Cath planned in AM (2) HTN (hypertension) Comment: holding lisinopril pre cath. Cont lopressor (3) Dyslipidemia Comment: pt is allergic to statins. Zetia started by cardiology (4) DVT prophylaxis Comment: cont heparin gtt Status and Disposition: OBV will be changed to inpatient
[2019-04-07] MEDS: Ezetimibe TAB* 10 MG PO SCH (16:33)
[2019-04-07] MEDS: Ticagrelor* 90 MG TAB PO SCH (21:45)
[2019-04-07] MEDS: Nitroglycerin 0.4 MG/HR PATCH* (10 MG) TRANSDERM SCH (21:45)
[2019-04-07] MEDS: traZODone TAB* 100 MG PO SCH (21:45)
[2019-04-07] MEDS: Heparin DRIP 25,000 UNITS(*) 25,000 UNITS/500 ML BAG IV SCH (22:13)
[2019-04-08] MEDS: Acetaminophen TAB* 325 MG PO PRN (01:45)
[2019-04-08] MEDS: Nitro Patch/OINT Remove PATCH OFF SCH (05:38)
[2019-04-08] MEDS ORDERED: NS 0.9% 1000 ML** 1,000 ML IV SCH (06:00)
[2019-04-08 06:42] LABS: ABS Eosinophils 0.1 10^3/ul (0-0.6); ABS Lymphocytes 1.5 10^3/ul (1.0-4.8); ABS Monocytes 0.4 10^3/ul (0-0.8); ABS Neutrophils 4.8 10^3/ul (1.5-7.7); Eosinophil % 1.3 %; Hematocrit 39 % (42-52); Hemoglobin 13.2 g/dL (14.0-18.0); Lymphocyte % 22.2 %; Mean Corpuscular HGB Conc 34 g/dL (31-36); Mean Corpuscular Hemoglobin 31 pg (27-31); Mean Corpuscular Volume 90 fL (80-94); Mean Platelet Volume 6.9 fL (7.4-10.4); Nucleated Red Blood Cells % 0.1; Platelet Count 183 10^3/uL (150-450); Red Blood Count 4.34 10^6 /uL (4.18-5.48); Red Cell Distribution Width 14 % (10-15); White Blood Count 6.8 10^3/uL (3.5-10.8)
[2019-04-08 06:54] LABS: BUN/Creatinine Ratio 12.3 (8-20); Calcium 8.4 mg/dL (8.6-10.3); EGFR African American 76.8 (>60); EGFR Non-African American 63.5 (>60); Potassium 3.6 mmol/L (3.5-5.0)
[2019-04-08] MEDS: Aspirin 81 mg CHEW TAB* 81 MG TAB.CHEW PO SCH (08:55)
[2019-04-08] MEDS: Metoprolol Tartrate TAB* 25 MG PO SCH ×2 (08:55→22:33)
[2019-04-08] MEDS: Ticagrelor* 90 MG TAB PO SCH (08:55)
[2019-04-08] MEDS: Docusate CAP* 100 MG PO SCH ×2 (08:58→22:33)
[2019-04-08] MEDS ORDERED: Midazolam* 1 MG/ML 5 ML VIAL (5 MG) ONE (12:17)
[2019-04-08] MEDS ORDERED: fentaNYL* 50 MCG/ML 2 ML VIAL (100 MCG VIAL) ONE (12:17)
[2019-04-08] MEDS ORDERED: Heparin 2 UNITS/ML IVPREMIX* 2,000 ML IV ONE (12:18)
[2019-04-08] MEDS ORDERED: VERAPAMIL 2.5 MG/ML 2 ML VIAL ** 5 mg/2 ml ONE (12:18)
[2019-04-08] MEDS ORDERED: nitroGLYCERIN DRIP* 25,000 MCG/250 ML BTL ONE (12:18)
[2019-04-08] MEDS ORDERED: Lidocaine 1% INJ* 10 MG/ML 30 ML SDV ONE (12:18)
[2019-04-08] MEDS ORDERED: Heparin(*) 1000 UNIT/ML 10 ML VIAL CATH LAB IV ONE (12:18)
[2019-04-08] MEDS ORDERED: Iohexol 350 (CONTRAST) 200 ML MDV IV ONE ×2 (12:19→12:20)
[2019-04-08] MEDS ORDERED: Lisinopril TAB* 5 MG PO ONE (14:51)
--- NOTE | 2019-04-08 14:51 | PN ---
Subjective Date of Service: 04/08/19 Interval History: Pt is seen post cath, denies CP. Had r radial approach. feels well. Objective Active Medications: Acetaminophen (Tylenol Tab*) 650 mg PO Q4H PRN PRN Reason: PAIN-MILD/TEMP >/= 100.4 Last Admin: 04/08/19 01:45 Dose: 650 mg Al Hydrox/Mg Hydrox/Simethicone (Maalox Plus*) 30 ml PO Q6H PRN PRN Reason: INDIGESTION Aspirin (Aspirin 81 Mg Chew Tab*) 81 mg PO DAILY [facility] Last Admin: 04/08/19 08:55 Dose: 81 mg Clopidogrel Bisulfate (Plavix Tab*) 75 mg PO DAILY [facility] Clopidogrel Bisulfate (Plavix Tab*) 150 mg PO ONCE ONE Stop: 04/08/19 22:01 Docusate Sodium (Colace Cap*) 100 mg PO BID [facility] Last Admin: 04/08/19 08:58 Dose: 100 mg Ezetimibe (Zetia Tab*) 10 mg PO 1700 [facility] Last Admin: 04/07/19 16:33 Dose: 10 mg Metoprolol Tartrate (Lopressor Tab*) 25 mg PO BID [facility] Last Admin: 04/08/19 08:55 Dose: 25 mg Nitroglycerin (Nitroglycerin 10 Mg Patch*) 1 patch TRANSDERM BEDTIME@1999 [facility] Last Admin: 04/07/19 21:45 Dose: 1 patch Ondansetron HCl (Zofran Inj*) 4 mg IV Q4H PRN PRN Reason: NAUSEA/VOMITING Pharmacy Profile Note (Nitro Patch/Oint Remove*) 1 note PATCH OFF 0600 [facility] Last Admin: 04/08/19 05:38 Dose: 1 patch Trazodone HCl (Desyrel Tab*) 100 mg PO BEDTIME [facility] Last Admin: 04/07/19 21:45 Dose: 100 mg Vital Signs - 8 hr 04/08/19 04/08/19 04/08/19 07:15 07:56 11:30 Temperature 97.5 F Pulse Rate 76 Respiratory 18 18 20 Rate Blood Pressure 150/98 (mmHg) O2 Sat by Pulse 98 Oximetry 04/08/19 04/08/19 04/08/19 12:05 13:49 13:50 Temperature 98.5 F Pulse Rate 69 70 79 Respiratory 20 Rate Blood Pressure 140/91 156/99 (mmHg) O2 Sat by Pulse 97 97 96 Oximetry 04/08/19 13:55 Temperature Pulse Rate 70 Respiratory 10 Rate Blood Pressure 169/97 (mmHg) O2 Sat by Pulse 96 Oximetry Oxygen Devices in Use Now: None Appearance: 69 yo m in nAD, aAOx3 Eyes: No Scleral Icterus, PERRLA Ears/Nose/Mouth/Throat: NL Teeth, Lips, Gums, Mucous Membranes Moist Neck: NL Appearance and Movements; NL JVP, Trachea Midline Respiratory: Symmetrical Chest Expansion and Respiratory Effort, Clear to Auscultation Cardiovascular: NL Sounds; No Murmurs; No JVD, RRR Abdominal: NL Sounds; No Tenderness; No Distention Lymphatic: No Cervical Adenopathy Extremities: No Edema, No Clubbing, Cyanosis Skin: No Rash or Ulcers, No Nodules or Sclerosis Neurological: Alert and Oriented x 3, NL Muscle Strength and Tone Result Diagrams: 04/08/19 06:11 04/08/19 06:11 Assess/Plan/Problems-Billing Assessment: 69 yo M with h/o left carotid enderterectomy, AAA repair, aorto- femoral bypass who presents with CP - Patient Problems (1) Unstable angina Comment: today CP free Stress test showed mod area of reversible ishemia, but cath today shows CAD up 45% stenosis- medical management recommended, no stents cont ASA, BB, Plavix started Allergy to statins noted Can go home in aM (2) HTN (hypertension) Comment: restart lisinopril post cath. Cont lopressor (3) Dyslipidemia Comment: pt is allergic to statins. Zetia started by cardiology (4) DVT prophylaxis Comment: heparin sc Status and Disposition: inpatient
[2019-04-08] MEDS: Ezetimibe TAB* 10 MG PO SCH (17:23)
[2019-04-08] MEDS ORDERED: Clopidogrel TAB* 75 MG PO ONE ×2 (22:00)
[2019-04-08] MEDS: traZODone TAB* 100 MG PO SCH (22:33)
[2019-04-08] MEDS: Heparin VIAL(*) 5000 UNITS/ML VIAL (FIVE THOUSAND) SUBCUT SCH (22:34)
[2019-04-08] MEDS: Nitroglycerin 0.4 MG/HR PATCH* (10 MG) TRANSDERM SCH (22:35)
[2019-04-09] MEDS: Nitro Patch/OINT Remove PATCH OFF SCH (04:47)
[2019-04-09] MEDS: Heparin VIAL(*) 5000 UNITS/ML VIAL (FIVE THOUSAND) SUBCUT SCH (05:36)
[2019-04-09] MEDS: Docusate CAP* 100 MG PO SCH (08:12)
[2019-04-09] MEDS: Metoprolol Tartrate TAB* 25 MG PO SCH (08:12)
[2019-04-09] MEDS: Aspirin 81 mg CHEW TAB* 81 MG TAB.CHEW PO SCH (08:12)
[2019-04-09 08:55] LABS: ABS Basophils 0.1 10^3/ul (0-0.2); ABS Eosinophils 0.1 10^3/ul (0-0.6); ABS Lymphocytes 1.8 10^3/ul (1.0-4.8); ABS Monocytes 0.4 10^3/ul (0-0.8); Eosinophil % 1.8 %; Hematocrit 44 % (42-52); Lymphocyte % 24.3 %; Mean Corpuscular HGB Conc 34 g/dL (31-36); Mean Corpuscular Hemoglobin 31 pg (27-31); Mean Corpuscular Volume 90 fL (80-94); Mean Platelet Volume 6.8 fL (7.4-10.4); Nucleated Red Blood Cells % 0.1; Platelet Count 204 10^3/uL (150-450); Red Blood Count 4.86 10^6 /uL (4.18-5.48); Red Cell Distribution Width 14 % (10-15); White Blood Count 7.4 10^3/uL (3.5-10.8)
[2019-04-09] MEDS ORDERED: Clopidogrel TAB* 75 MG PO SCH (09:00)
[2019-04-09] MEDS ORDERED: Lisinopril TAB* 5 MG PO SCH (09:00)
[2019-04-09 09:13] LABS: BUN/Creatinine Ratio 11.8 (8-20); Calcium 9.7 mg/dL (8.6-10.3); EGFR African American 73.1 (>60); EGFR Non-African American 60.4 (>60); HDL Cholesterol 45.8 mg/dL; Potassium 4.1 mmol/L (3.5-5.0)
--- NOTE | 2019-04-09 11:16 | CATH ---
CC: Dr. Russ; Dr. Blaek Gottlieb at [facility] * CARDIAC CATHETERIZATION: DATE OF PROCEDURE: 04/08/19 INDICATION FOR THE PROCEDURE: Asked by Dr. Brandyn Chavez (in-hospital supervisor costuming on the case) to perform coronary arteriography and possible intervention in light of the patient presenting with significant symptomatology suggestive of acute coronary syndrome with nuclear stress test that appeared to be less convincing for significant ischemia. PROCEDURE: Coronary arteriography, left heart catheterization, left ventriculography. CONSENT: 1. The patient was interviewed and examined on the floor of the hospital where the risks and benefits were explained. 2. Approach utilized. The right radial artery was assessed under ultrasound prior to coming to the cardiovascular laboratory and was found to be acceptable for an approach, and as such, this was the approach utilized. PRECARDIAC CATHETERIZATION LABORATORY RESULTS: Hemoglobin and hematocrit of 13.2 and 39 with a platelet count 183,000. BUN and creatinine of 14 and 1.1. Sodium of 140, potassium 3.6, chloride 110, bicarb 24. Troponin 0.03. EQUIPMENT UTILIZED: 1. Right radial artery sheath with a 6-Kyrgyz Glidesheath. 2. Diagnostic coronary catheter with a 5-Kyrgyz TIG-4 catheter. 3. Left heart catheterization catheter was a 5-Kyrgyz PIG short radial catheter. 4. Diagnostic guidewire utilized was a Wholey 145 cm length as well as a 260 cm length Crawford curved guidewire. 5. Closure device was utilized was a regular length Vasc Band. MEDICATIONS GIVEN: Included radial artery cocktail of 3000 units of heparin, 300 mcg of nitroglycerin, and 3 mg verapamil. Local 1% Xylocaine was utilized. An additional heparin bolus of 1000 units was given. DESCRIPTION OF PROCEDURE: The patient was brought to the cardiovascular laboratory where a formal time-out was performed. He was prepped and draped in sterile fashion, and under ultrasound guidance, the right radial artery was cannulated and the sheath was placed and radial artery cocktail was given. Diagnostic coronary arteriography was then performed. Following this, left heart catheterization was performed and left ventriculography using a total of 28 cc of Omnipaque dye at a rate of 14 cc per second. The catheter was then pulled back across the aortic valve to recheck gradient. At the end of the case , the catheter and sheath were removed and hemostasis was obtained with a Vasc Band. The reverse [place] was a B. The total contrast use was 65 cc of Omnipaque dye. The radiation exposure included 8.3 minutes of fluoro time. The air kerma radiation was 1646 milligray. The DAP radiation was 8601 microgray per meter squared. RESULTS: HEMODYNAMIC DATA: Left heart catheterization - central aortic pressure was recorded at 155/80 with a mean of 114. Left ventricular pressure 157 over left ventricular end diastolic pressure of 11. LEFT VENTRICULOGRAPHY: Performed in the [place] projection revealed symmetrical contraction of the left ventricle. There were no significant focal wall motion abnormalities seen with a question of minimal mid anterior wall hypokinesis. The overall EF was still normal at approximately 50% to 55%. No significant mitral regurgitation was noted. CORONARY ARTERIOGRAPHY: A. Left coronary artery: 1. Left main - widely patent with calcification seen in the wall of the vessel. This calcium extended into the proximal left anterior descending artery. 2. Left anterior descending artery: The ostium and proximal portion of the left anterior descending artery had narrowing of 45% to 50% seen, eccentric in nature with calcium noted. The first diagonal branch was a high vessel which had ostial narrowing of approximately 55% with calcium noted as well. The caliber of the first diagonal branch became somewhat smaller in its mid segment, but no focal stenosis was seen. The left anterior descending artery itself supplied a small mid diagonal branch and further diagonal branches. It extended to the apical region. There was a mid segment of the vessel that appeared to be intramyocardial in nature. There did not appear to be significant systolic milking of this segment. 3. Circumflex artery - a dominant vessel supplying a high first obtuse marginal branch followed by mid obtuse marginal branch and eventually traversing down to a low lying obtuse marginal branch and a small posterior descending artery. There were minimal luminal irregularities noted throughout the system, but no critical stenosis was seen. Of note, the circumflex supplied the [id number] inferior wall (the left anterior descending artery appeared to supply the distal inferior wall). B. Right coronary artery - A nondominant vessel supplying a bifurcating acute marginal branch followed by a small acute marginal branch. There was no significant stenosis seen throughout the course of the vessel. OVERALL ASSESSMENT: Normal left ventricular systolic function with no significant focal wall motion abnormalities (subtle mid anterior wall motion abnormality could not be ruled out). A moderate lesion in the proximal to ostial LAD with calcification seen of 45% to 50% with heavy calcifications seen around the areas described above. At this point in time, this information was shared with Dr. May, the primary supervisor costuming managing the case on the day of the cardiac catheterization. Aggressive medical management will be pursued. Consideration for perhaps dual antiplatelet therapy for perhaps 6-month time with clopidogrel could be considered given symptom presentation. No focal critical stenosis was found that could explain symptoms occurring at rest as described in the original presentation. Suggest clinical correlation. [id number]/[facility] #: [id number]
[2019-04-09 11:34] VITALS: BP 147/79
--- NOTE | 2019-04-09 19:58 | DS ---
CC: Dr. Russ; Dr. Gottlieb * DISCHARGE SUMMARY: DATE OF ADMISSION: 04/06/19 DATE OF DISCHARGE: 04/09/19 PRIMARY CARE PROVIDER: Dr. Russ. GREEN HOUSE MANAGER: Dr. Gottlieb. DISPOSITION ON DISCHARGE: Home. CONDITION ON DISCHARGE: Good. PRIMARY DIAGNOSIS: Chest pain. SECONDARY DIAGNOSES: Include: 1. Hypertension. 2. Hyperlipidemia. 3. History of cerebrovascular accident. 4. Peripheral vascular disease. MEDICATIONS ON DISCHARGE: Include: 1. Docusate 100 mg daily as needed. 2. Lisinopril 5 mg daily. 3. Aspirin 81 mg daily. 4. Trazodone 100 mg daily at bedtime. 5. Pravastatin 20 mg in the evening. 6. Metoprolol 25 mg twice daily. 7. Clopidogrel 75 mg daily. Please note the addition of Plavix as well as metoprolol and pravastatin. PERTINENT LABORATORY DATA: Troponin-I peaked at 0.05. Total cholesterol 215. Triglycerides 167, LDL 136, HDL of 45. Creatinine on the day of discharge 1.19. PROCEDURES PERFORMED DURING HOSPITAL STAY: Left heart cath, overall assessment : Normal left ventricular systolic function with no significant focal wall motion abnormalities, subtle mild anterior wall motion abnormality cannot be ruled out. A moderate lesion in the proximal to ostial LAD with calcification seen of 45% to 50% with heavy calcification seen around the area described. Recommended aggressive medical management with consideration for dual antiplatelet therapy for perhaps 6 months time with clopidogrel. No focal critical stenosis found that could explain patient's symptomatology on presentation. HISTORY OF PRESENT ILLNESS AND HOSPITAL COURSE: This is a 69-year-old man with past medical history as outlined in the history of present illness on the day of admission, who presents to the hospital with chest pain concerning for coronary events. He was admitted to the hospital, had troponins trended, seen by Cardiology and ultimately underwent cardiac catheterization with no critical stenosis identified as indicated above. Medications were changed including the addition of metoprolol and Plavix. The patient in the past has had adverse reactions to atorvastatin and rosuvastatin. We discussed at starting Pravachol , which he was not averse to. At followup, please, 1. Follow up on tolerance for both Pravachol as well as dual antiplatelet therapy. 2. Titrating medications for optimal medical management of CAD. 3. No other specific labs or vitals that need followup. Reasons to return to the hospital including, but not limited to, recurrent or worsening symptoms including chest pain, shortness of breath, nausea, vomiting, lightheadedness, loss of consciousness, bleeding from any source, inability to obtain or tolerate medications discussed with the patient and his . They acknowledged understanding. TIME SPENT: Greater than 60 minutes was spent on discharge of this patient. [id number] #: [id number] MTDD
== END 2019-04-09 13:00 | disposition home or self-care (01) | DRG 287 ==
LOC: ED 13:11 → MEDTELE 16:17 → INTOOBSV 04-07 13:59 → OBSVTOIN 04-07 13:59
PROVIDERS: ADMIT Internal Medicine; ATTEND Internal Medicine
PROC: B211YZZ Fluoroscopy of Multiple Coronary Arteries using Other Contrast (ICD-10-PCS; 2019-04-08)
PROC: B215YZZ Fluoroscopy of Left Heart using Other Contrast (ICD-10-PCS; 2019-04-08)
PROC: 4A023N7 Measurement of Cardiac Sampling and Pressure, Left Heart, Percutaneous Approach (ICD-10-PCS; principal; 2019-04-08 12:30)
DX: I24.9 Acute ischemic heart disease, unspecified (principal); I25.110 Atherosclerotic heart disease of native coronary artery with unstable angina pectoris; R07.9 Chest pain, unspecified; I10 Essential (primary) hypertension; E78.5 Hyperlipidemia, unspecified; I73.9 Peripheral vascular disease, unspecified; I77.810 Thoracic aortic ectasia; N40.0 Benign prostatic hyperplasia without lower urinary tract symptoms; E78.00 Pure hypercholesterolemia, unspecified; K21.9 Gastro-esophageal reflux disease without esophagitis; I65.23 Occlusion and stenosis of bilateral carotid arteries; I45.10 Unspecified right bundle-branch block; I70.1 Atherosclerosis of renal artery; J45.909 Unspecified asthma, uncomplicated; F17.220 Nicotine dependence, chewing tobacco, uncomplicated; Z86.73 Personal history of transient ischemic attack (TIA), and cerebral infarction without residual deficits; Z79.82 Long term (current) use of aspirin; Z79.899 Other long term (current) drug therapy; Z88.8 Allergy status to other drugs, medicaments and biological substances; Z82.49 Family history of ischemic heart disease and other diseases of the circulatory system
CPT/HCPCS: 36415; 70498; 71275; 78452; 80048; 80053; 80061; 81003; 82565; 83036; 83735; 84443; 84484; 84520; 85025; 85379; 85730; 93005; 93017; 93458; 99156; 99157; 99283; A9270-GY; A9502; G0378; J0280; J1644; J2250; J2765; J2785; J3010; J3490; Q9967

== ENCOUNTER 2021-09-08 10:27 | Inpatient (IN) ==
[2021-09-08] MEDS ORDERED: Senna TAB 8.6 mg TAB PO PRN (12:49)
[2021-09-08] MEDS ORDERED: Magnesium Hydroxide LIQ 30 ML UDC PO PRN (12:49)
[2021-09-08] MEDS: Magic MouthWash2-BEN/MAAL/LIDO/NYST 240 ML BTL (alt formulation) SWISH SWAL SCH ×3 (15:53→21:32)
[2021-09-08] MEDS: Heparin 5000 UNITS/ML 1 mL VIAL SUBCUT SCH (21:32)
[2021-09-08] MEDS: D5NS 0.9% 1000 ml BAG 1,000 ML IV SCH (22:57)
[2021-09-09] MEDS: Heparin 5000 UNITS/ML 1 mL VIAL SUBCUT SCH ×3 (05:46→21:46)
[2021-09-09 06:53] LABS: ABS Eosinophils 0.1 10^3/ul (0-0.6); ABS Monocytes 0.6 10^3/ul (0-0.8); ABS Neutrophils 4.2 10^3/ul (1.5-7.7); Eosinophil % 1.2 %; Hematocrit 24 % (42-52); Hemoglobin 8.3 g/dL (14.0-18.0); Lymphocyte % 17.4 %; Mean Corpuscular HGB Conc 35 g/dL (31-36); Mean Corpuscular Hemoglobin 31 pg (27-31); Mean Corpuscular Volume 87 fL (80-94); Mean Platelet Volume 6.2 fL (7.4-10.4); Platelet Count 300 10^3/uL (150-450); Red Blood Count 2.71 10^6 /uL (4.18-5.48); Red Cell Distribution Width 14 % (10-15); White Blood Count 5.9 10^3/uL (3.5-10.8)
[2021-09-09 07:26] LABS: Albumin 2.4 g/dL (3.2-5.2); Albumin/Globulin Ratio 1.1 (1-3); Calcium 7.5 mg/dL (8.6-10.3); Globulin 2.1 g/dL (2-4); Potassium 3.2 mmol/L (3.5-5.0); Total Bilirubin 0.3 mg/dL (0.2-1.0); Total Protein 4.5 g/dL (6.4-8.9); eGFR CKD-EPI 94.4 (>60)
[2021-09-09] MEDS ORDERED: Potassium Chlor 20 meq TAB.ER PO ONE (08:08)
[2021-09-09] MEDS: Calcium Carb (TUMS) 500 mg CHEW TAB PO SCH ×2 (08:58→21:41)
[2021-09-09] MEDS: Magic MouthWash2-BEN/MAAL/LIDO/NYST 240 ML BTL (alt formulation) SWISH SWAL SCH ×4 (08:58→20:50)
[2021-09-09] MEDS: CMCS: LINACLOTIDE 72 MCG CAP (NF) PO SCH (09:06)
[2021-09-09] MEDS: ceFAZolin 2 GM PREMIX 2 GM/50 ML BAG IVPB SCH ×2 (12:09→21:39)
[2021-09-09] MEDS: D5NS 0.9% 1000 ml BAG 1,000 ML IV SCH (13:55)
[2021-09-09] MEDS: Potassium Chlor 20 meq TAB.ER PO SCH ×2 (17:40→21:49)
[2021-09-10] MEDS: ceFAZolin 2 GM PREMIX 2 GM/50 ML BAG IVPB SCH ×3 (03:18→19:52)
[2021-09-10] MEDS: Heparin 5000 UNITS/ML 1 mL VIAL SUBCUT SCH ×3 (05:22→22:01)
[2021-09-10] MEDS: Sodium Chloride FLUSH 10 ml SYRINGE IV FLUSH SCH ×2 (09:05→21:23)
[2021-09-10] MEDS: Magic MouthWash2-BEN/MAAL/LIDO/NYST 240 ML BTL (alt formulation) SWISH SWAL SCH ×4 (10:09→22:05)
[2021-09-10] MEDS: CMCS: LINACLOTIDE 72 MCG CAP (NF) PO SCH (10:10)
[2021-09-10] MEDS: Calcium Carb (TUMS) 500 mg CHEW TAB PO SCH ×3 (11:49→21:24)
[2021-09-10] MEDS: Potassium Chlor 20 meq TAB.ER PO SCH ×2 (14:38→21:24)
[2021-09-11] MEDS: ceFAZolin 2 GM PREMIX 2 GM/50 ML BAG IVPB SCH ×3 (04:14→20:27)
[2021-09-11] MEDS: Heparin 5000 UNITS/ML 1 mL VIAL SUBCUT SCH ×3 (05:03→21:03)
[2021-09-11 05:31] LABS: ABS Eosinophils 0.1 10^3/ul (0-0.6); ABS Monocytes 0.5 10^3/ul (0-0.8); Hematocrit 24 % (42-52); Hemoglobin 8.4 g/dL (14.0-18.0); Lymphocyte % 14.8 %; Mean Corpuscular HGB Conc 35 g/dL (31-36); Mean Corpuscular Hemoglobin 30 pg (27-31); Mean Corpuscular Volume 87 fL (80-94); Platelet Count 273 10^3/uL (150-450); Red Blood Count 2.78 10^6 /uL (4.18-5.48); Red Cell Distribution Width 14 % (10-15); White Blood Count 6.6 10^3/uL (3.5-10.8)
[2021-09-11 06:26] LABS: Calcium 7.5 mg/dL (8.6-10.3); Potassium 3.4 mmol/L (3.5-5.0); eGFR CKD-EPI 89.5 (>60)
[2021-09-11] MEDS: Calcium Carb (TUMS) 500 mg CHEW TAB PO SCH ×2 (08:56→20:55)
[2021-09-11] MEDS: NS 0.9% 1000 ml BAG 1,000 ML IV SCH (11:05)
[2021-09-11] MEDS: Magic MouthWash2-BEN/MAAL/LIDO/NYST 240 ML BTL (alt formulation) SWISH SWAL SCH ×4 (12:04→21:05)
[2021-09-11] MEDS: CMCS: LINACLOTIDE 72 MCG CAP (NF) PO SCH (12:04)
[2021-09-11] MEDS: Sodium Chloride FLUSH 10 ml SYRINGE IV FLUSH SCH ×2 (12:05→21:06)
[2021-09-11] MEDS: Potassium Chlor 20 meq TAB.ER PO SCH ×2 (12:47→21:05)
[2021-09-12] MEDS: NS 0.9% 1000 ml BAG 1,000 ML IV SCH (02:07)
[2021-09-12] MEDS: ceFAZolin 2 GM PREMIX 2 GM/50 ML BAG IVPB SCH ×3 (03:41→19:41)
[2021-09-12] MEDS: Heparin 5000 UNITS/ML 1 mL VIAL SUBCUT SCH ×3 (05:35→21:59)
[2021-09-12] MEDS: Magic MouthWash2-BEN/MAAL/LIDO/NYST 240 ML BTL (alt formulation) SWISH SWAL SCH ×4 (08:08→20:33)
[2021-09-12] MEDS: Calcium Carb (TUMS) 500 mg CHEW TAB PO SCH ×2 (08:11→21:27)
[2021-09-12] MEDS: Potassium Chlor 20 meq TAB.ER PO SCH ×2 (09:28→20:27)
[2021-09-12] MEDS: CMCS: LINACLOTIDE 72 MCG CAP (NF) PO SCH (09:29)
[2021-09-12] MEDS: Sodium Chloride FLUSH 10 ml SYRINGE IV FLUSH SCH ×2 (09:39→21:00)
[2021-09-13] MEDS: ceFAZolin 2 GM PREMIX 2 GM/50 ML BAG IVPB SCH ×2 (03:53→12:32)
[2021-09-13] MEDS: Heparin 5000 UNITS/ML 1 mL VIAL SUBCUT SCH ×3 (04:54→21:44)
[2021-09-13] MEDS: Calcium Carb (TUMS) 500 mg CHEW TAB PO SCH ×2 (11:43→21:44)
[2021-09-13] MEDS: Potassium Chlor 20 meq TAB.ER PO SCH ×2 (11:44→21:45)
[2021-09-13] MEDS: Magic MouthWash2-BEN/MAAL/LIDO/NYST 240 ML BTL (alt formulation) SWISH SWAL SCH ×4 (11:44→21:45)
[2021-09-13] MEDS: CMCS: LINACLOTIDE 72 MCG CAP (NF) PO SCH (11:45)
[2021-09-13] MEDS: Sodium Chloride FLUSH 10 ml SYRINGE IV FLUSH SCH ×2 (11:47→21:43)
[2021-09-14] MEDS: Heparin 5000 UNITS/ML 1 mL VIAL SUBCUT SCH ×3 (04:25→22:39)
[2021-09-14 07:22] LABS: Calcium 8.1 mg/dL (8.6-10.3); Potassium 4.1 mmol/L (3.5-5.0); eGFR CKD-EPI 91.1 (>60)
[2021-09-14] MEDS: CMCS: LINACLOTIDE 72 MCG CAP (NF) PO SCH (09:33)
[2021-09-14] MEDS: Potassium Chlor 20 meq TAB.ER PO SCH ×2 (09:33→20:26)
[2021-09-14] MEDS: Calcium Carb (TUMS) 500 mg CHEW TAB PO SCH ×2 (09:34→20:27)
[2021-09-14] MEDS: Magic MouthWash2-BEN/MAAL/LIDO/NYST 240 ML BTL (alt formulation) SWISH SWAL SCH ×4 (12:31→20:38)
[2021-09-14] MEDS: Sodium Chloride FLUSH 10 ml SYRINGE IV FLUSH SCH ×2 (12:31→22:47)
[2021-09-15] MEDS: Heparin 5000 UNITS/ML 1 mL VIAL SUBCUT SCH ×3 (05:21→21:30)
[2021-09-15] MEDS: Magic MouthWash2-BEN/MAAL/LIDO/NYST 240 ML BTL (alt formulation) SWISH SWAL SCH ×4 (10:09→21:39)
[2021-09-15] MEDS: Calcium Carb (TUMS) 500 mg CHEW TAB PO SCH ×2 (15:38→21:27)
[2021-09-15] MEDS: CMCS: LINACLOTIDE 72 MCG CAP (NF) PO SCH (15:39)
[2021-09-15] MEDS: Sodium Chloride FLUSH 10 ml SYRINGE IV FLUSH SCH ×2 (15:39→21:34)
[2021-09-16] MEDS: Heparin 5000 UNITS/ML 1 mL VIAL SUBCUT SCH ×2 (04:08→15:17)
[2021-09-16 05:15] LABS: ABS Eosinophils 0.2 10^3/ul (0-0.6); ABS Lymphocytes 1.6 10^3/ul (1.0-4.8); ABS Monocytes 0.5 10^3/ul (0-0.8); ABS Neutrophils 4.6 10^3/ul (1.5-7.7); Eosinophil % 2.2 %; Hematocrit 27 % (42-52); Hemoglobin 9.1 g/dL (14.0-18.0); Lymphocyte % 23.6 %; Mean Corpuscular HGB Conc 34 g/dL (31-36); Mean Corpuscular Hemoglobin 30 pg (27-31); Mean Corpuscular Volume 88 fL (80-94); Mean Platelet Volume 5.8 fL (7.4-10.4); Platelet Count 269 10^3/uL (150-450); Red Blood Count 3.02 10^6 /uL (4.18-5.48); Red Cell Distribution Width 14 % (10-15); White Blood Count 6.9 10^3/uL (3.5-10.8)
[2021-09-16 05:46] LABS: Albumin 2.7 g/dL (3.2-5.2); Calcium 8.2 mg/dL (8.6-10.3); Globulin 2.6 g/dL (2-4); Total Bilirubin 0.4 mg/dL (0.2-1.0); Total Protein 5.3 g/dL (6.4-8.9); eGFR CKD-EPI 90.7 (>60)
[2021-09-16] MEDS: Sodium Chloride FLUSH 10 ml SYRINGE IV FLUSH SCH (11:37)
[2021-09-16] MEDS: Magic MouthWash2-BEN/MAAL/LIDO/NYST 240 ML BTL (alt formulation) SWISH SWAL SCH ×2 (11:37→14:01)
[2021-09-16] MEDS: CMCS: LINACLOTIDE 72 MCG CAP (NF) PO SCH (11:38)
[2021-09-16] MEDS: Calcium Carb (TUMS) 500 mg CHEW TAB PO SCH (11:39)
[2021-09-16] MEDS ORDERED: D5NS 0.9% 1000 ml BAG 1,000 ML IV SCH ×2 (14:00)
[2021-09-16] MEDS ORDERED: Iohexol 350 (CONTRAST) 500 ML MDV IV ONE (14:21)
[2021-09-19] MEDS: Magic MouthWash2-BEN/MAAL/LIDO/NYST 240 ML BTL (alt formulation) SWISH SWAL SCH (16:36)
[2021-09-19] MEDS: Calcium Carb (TUMS) 500 mg CHEW TAB PO SCH (20:54)
[2021-09-19] MEDS: Heparin 5000 UNITS/ML 1 mL VIAL SUBCUT SCH (20:55)
[2021-09-20] MEDS: Heparin 5000 UNITS/ML 1 mL VIAL SUBCUT SCH ×3 (04:58→22:07)
[2021-09-20] MEDS: Calcium Carb (TUMS) 500 mg CHEW TAB PO SCH ×2 (09:50→20:17)
[2021-09-20] MEDS: Polyethylene Glycol 3350 17 GM PACKET PO SCH (09:51)
[2021-09-21] MEDS: Heparin 5000 UNITS/ML 1 mL VIAL SUBCUT SCH ×3 (05:06→21:56)
[2021-09-21] MEDS: Calcium Carb (TUMS) 500 mg CHEW TAB PO SCH ×2 (07:39→21:54)
[2021-09-21] MEDS: Polyethylene Glycol 3350 17 GM PACKET PO SCH (10:03)
[2021-09-22] MEDS: Heparin 5000 UNITS/ML 1 mL VIAL SUBCUT SCH (05:13)
[2021-09-22 05:38] VITALS: BP 129/82
[2021-09-22] MEDS: Polyethylene Glycol 3350 17 GM PACKET PO SCH (08:37)
[2021-09-22] MEDS: Calcium Carb (TUMS) 500 mg CHEW TAB PO SCH (08:41)
== END 2021-09-22 12:25 | disposition home health service (06) | DRG 949 ==
LOC: PMRU 12:19 → UNDODISIN 09-16 17:23
PROVIDERS: ADMIT Physical Medicine & Rehabilitation; ATTEND Physical Medicine & Rehabilitation

== ENCOUNTER 2021-09-16 17:27 | Observation (INO) ==
[2021-09-16] MEDS: Calcium Carb (TUMS) 500 mg CHEW TAB PO SCH (20:10)
[2021-09-16 21:39] LABS: Urine Appearance Clear; Urine Bilirubin Negative (Negative); Urine Blood Negative (Negative); Urine Color Yellow; Urine Glucose Negative (Negative); Urine Ketones Negative (Negative); Urine Nitrite Negative (Negative); Urine Protein Negative (Negative); Urine Urobilinogen Negative (Negative)
[2021-09-17] MEDS: Polyethylene Glycol 3350 17 GM PACKET PO SCH (09:58)
[2021-09-17] MEDS: Calcium Carb (TUMS) 500 mg CHEW TAB PO SCH ×2 (09:59→20:59)
[2021-09-17 16:47] LABS: ABS Basophils 0.1 10^3/ul (0-0.2); ABS Eosinophils 0.2 10^3/ul (0-0.6); ABS Lymphocytes 1.6 10^3/ul (1.0-4.8); ABS Monocytes 0.5 10^3/ul (0-0.8); ABS Neutrophils 3.3 10^3/ul (1.5-7.7); Eosinophil % 3.2 %; Hematocrit 26 % (42-52); Hemoglobin 8.6 g/dL (14.0-18.0); Lymphocyte % 27.9 %; Mean Corpuscular HGB Conc 34 g/dL (31-36); Mean Corpuscular Hemoglobin 30 pg (27-31); Mean Corpuscular Volume 89 fL (80-94); Platelet Count 264 10^3/uL (150-450); Red Blood Count 2.89 10^6 /uL (4.18-5.48); Red Cell Distribution Width 14 % (10-15); White Blood Count 5.6 10^3/uL (3.5-10.8)
[2021-09-17 16:55] LABS: Activated Partial Thrombo Time 28.6 seconds (26.0-38.0); INR 1.34 (0.86-1.15)
[2021-09-17 18:04] LABS: Calcium 7.9 mg/dL (8.6-10.3); Magnesium 1.8 mg/dL (1.9-2.7); Potassium 4.5 mmol/L (3.5-5.0); eGFR CKD-EPI 69.1 (>60)
[2021-09-17] MEDS: Heparin 5000 UNITS/ML 1 mL VIAL SUBCUT SCH (20:54)
[2021-09-18] MEDS: Heparin 5000 UNITS/ML 1 mL VIAL SUBCUT SCH ×2 (05:26→15:46)
[2021-09-18] MEDS: Calcium Carb (TUMS) 500 mg CHEW TAB PO SCH (10:15)
[2021-09-18] MEDS: Polyethylene Glycol 3350 17 GM PACKET PO SCH (10:15)
[2021-09-18 12:22] VITALS: BP 141/58
== END 2021-09-18 19:08 ==
LOC: SUATTDRO 17:27 → MEDTELE 17:27 → INTOOBSV 17:27 → PMRU 09-18 19:29
PROVIDERS: ADMIT Hospitalist; ATTEND Pediatrics